=== PATIENT | male | born 1965 | race Hispanic/Latino ===

== ENCOUNTER 2022-06-03 17:46 | Inpatient (IN) | payer SELFPAY ==
[~2022-06-03 17:46] MED LIST: Iopamidol 370 76% 100 ML VIAL ONE
[2022-06-03] MEDS ORDERED: Piperacillin/Tazobactam 3.375 GM VIAL ONE (18:41)
[2022-06-03 18:49] LABS: #Eosinphils 0.1 thou/uL (0.0-0.7); #Lymphocytes 0.8 thou/uL (1.20-3.40); #Monocytes 0.7 thou/uL (0.11-0.59); #Neutrophils 5.5 thou/uL (1.40-6.50); %Basophils 0.6 % (0.0-1.0); %Eosinophils 0.9 % (0.0-10.0); %Monocytes 9.9 % (0.0-10.0); %Neutrophils 77.7 % (42.0-75.0); Mean Corpuscular HGB CONC 33.2 g/dL (32.0-36.0); Mean Corpuscular Hemoglobin 29.4 pg (27.0-31.0); Mean Corpuscular Volume 88.7 fL (78.0-98.0); Mean Platelet Volume 6.7 fL (7.4-10.4); Platelet Count 186 thou/uL (130-400); RBC Distribution Width 14.6 % (11.5-14.5); Red Blood Cell (RBC) Count 3.05 mill/uL (4.70-6.10); White Blood Cell (WBC) Count 7.1 thou/uL (4.8-10.8)
[2022-06-03 18:54] LABS: ALT (SGPT) Less than 7 U/L (8-55); AST (SGOT) 15 U/L (5-34); Albumin 1.8 g/dL (3.5-5.0); Alkaline Phosphatase 108 U/L (40-110); Anion Gap 9 mmol/L (10-20); BUN (Urea Nitrogen) 8 mg/dL (8.4-25.7); Bilirubin, Total 0.8 mg/dL (0.2-1.2); CK (CPK) 35 U/L (30-200); Calc. Creatinine Clearance 0 mL/min (70-130); Calcium 7.2 mg/dL (7.8-10.44); Carbon Dioxide 23 mmol/L (22-29); Chloride 94 mmol/L (98-107); Estimated GFR 108; Globulin 3.8 g/dL (2.4-3.5); Lipase 55 U/L (8-78); Potassium 3.4 mmol/L (3.5-5.1); Protein, Total 5.6 g/dL (6.0-8.3)
[2022-06-03] MEDS ORDERED: Vancomycin 1.5 GRAM/300 ML BAG 1.5 GM in Premix Bag 1 BAG IVPB SCH (19:00)
[2022-06-03] MEDS ORDERED: Multivitamins, Adult 10 ML, Thiamine HCl 100 MG, Folic Acid 1 MG in Dextrose 5 %-0.45 %... IV SCH (19:00)
[2022-06-03 19:02] LABS: Glucose 185 mg/dL (70-105); Sodium 123 mmol/L (136-145)
[2022-06-03 20:18] LABS: Acetaminophen Less than 10.0 mcg/mL (10.0-30.0); Alcohol Less than 10 mg/dL (Less than 10); Salicylate Less than 8.0 mg/dL (15.0-30.0)
[2022-06-03] MEDS ORDERED: Acetaminophen 325 MG TAB PO PRN (21:13)
[2022-06-03] MEDS ORDERED: Ondansetron PF 4 MG/2 ML Vial IVP PRN (21:13)
[2022-06-03] MEDS ORDERED: Albumin 25% 25 GM/100 ML BOT IVPB SCH (21:15)
[2022-06-03] MEDS ORDERED: Potassium Chloride 20 MEQ TAB PO SCH (21:15)
[2022-06-03 21:20] LABS: Bilirubin Negative (Negative); Blood, Urine Negative (Negative); Clarity Clear (Clear); Glucose, Urine (Dipstick) Normal (Negative); Ketone, Urine Negative (Negative); Leukocyte Negative Leu/uL (Negative); Nitrite Negative (Negative); Protein, Urine (Dipstick) Negative (Neg-Trace); Specific Gravity, Urine 1.046 (1.002-1.036); Urobilinogen Normal mg/dL (Less than 2); pH, Urine 6.5 (5.0-9.0)
[2022-06-03 21:28] LABS: Amphetamine Not Detected (NotDetected); Barbiturates Screen Not Detected (NotDetected); Benzodiazepine Screen Not Detected (NotDetected); Cocaine Metabolite Screen Not Detected (NotDetected); Methadone Not Detected (NotDetected); Methamphetamine Not Detected (NotDetected); Opiate Screen Not Detected (NotDetected); Oxycodone Screen Not Detected (NotDetected); Phencyclidine (PCP) Not Detected (NotDetected); THC/Cannabinoid Screen Not Detected (NotDetected); Tricyclic Screen Not Detected (NotDetected)
[2022-06-03 21:51] LABS: SARS-CoV-2 NAA Rapid Test Not Detected (NotDetected)
[2022-06-03 22:33] LABS: Lactic Acid 1.5 mmol/L (0.5-2.2)
[2022-06-03 22:40] LABS: Anion Gap 10 mmol/L (10-20); BUN (Urea Nitrogen) 7 mg/dL (8.4-25.7); Calc. Creatinine Clearance 0 mL/min (70-130); Calcium 7.1 mg/dL (7.8-10.44); Carbon Dioxide 23 mmol/L (22-29); Chloride 96 mmol/L (98-107); Estimated GFR 111; Glucose 160 mg/dL (70-105); Magnesium 1.3 mg/dL (1.6-2.6); Potassium 3.5 mmol/L (3.5-5.1); Sodium 125 mmol/L (136-145)
[2022-06-03] MEDS ORDERED: Furosemide 20 MG/2 ML VIAL SLOW IVP SCH (23:00)
[2022-06-03] MEDS ORDERED: Magnesium 2 GM/50 ML(in water) 2 GM in Premix Bag 1 BAG IVPB SCH (23:00)
[2022-06-03] MEDS ORDERED: Magnesium Sulfate 2 GM in Sodium Chloride 0.9% 100 ML IVPB SCH (23:00)
[2022-06-03] MEDS: Thiamine HCl 200 MG/2 ML VIAL SLOW IVP SCH (23:38)
[2022-06-04] MEDS: Furosemide 20 MG/2 ML VIAL SLOW IVP SCH ×2 (05:21→14:44)
[2022-06-04 05:28] LABS: #Eosinphils 0.1 thou/uL (0.0-0.7); #Lymphocytes 0.4 thou/uL (1.20-3.40); #Monocytes 0.6 thou/uL (0.11-0.59); #Neutrophils 4.8 thou/uL (1.40-6.50); %Eosinophils 0.9 % (0.0-10.0); %Lymphocytes 7.6 % (21.0-51.0); %Monocytes 9.7 % (0.0-10.0); %Neutrophils 81.9 % (42.0-75.0); Hemoglobin 8.2 g/dL (14.0-18.0); Mean Corpuscular HGB CONC 33.2 g/dL (32.0-36.0); Mean Corpuscular Hemoglobin 29.9 pg (27.0-31.0); Mean Corpuscular Volume 90.1 fL (78.0-98.0); Mean Platelet Volume 7.1 fL (7.4-10.4); Platelet Count 167 thou/uL (130-400); RBC Distribution Width 14.8 % (11.5-14.5); Red Blood Cell (RBC) Count 2.74 mill/uL (4.70-6.10); White Blood Cell (WBC) Count 5.8 thou/uL (4.8-10.8)
[2022-06-04 05:47] LABS: Hemoglobin A1c 7.3 % (4.0-6.0)
[2022-06-04 06:38] LABS: Anion Gap 12 mmol/L (10-20); BUN (Urea Nitrogen) 8 mg/dL (8.4-25.7); Calc. Creatinine Clearance 96 mL/min (70-130); Calcium 7.4 mg/dL (7.8-10.44); Carbon Dioxide 21 mmol/L (22-29); Chloride 97 mmol/L (98-107); Estimated GFR 107; Glucose 165 mg/dL (70-105); Magnesium 1.7 mg/dL (1.6-2.6); Potassium 3.9 mmol/L (3.5-5.1); Sodium 126 mmol/L (136-145)
[2022-06-04] MEDS: Folic Acid 1 MG TAB PO SCH (09:01)
[2022-06-04] MEDS: Enoxaparin Sodium 30 MG/0.3 ML SYRINGE SC SCH (09:01)
[2022-06-04] MEDS: Multivitamin W/ Minerals 1 TAB PO SCH (09:02)
[2022-06-04] MEDS: cefTRIAXone\\ROCEPHIN 2 GM in Sodium Chloride 0.9% 100 ML IVPB SCH (18:15)
[2022-06-04] MEDS: Albumin 25% 25 GM/100 ML BOT IVPB SCH (18:20)
[2022-06-05] MEDS: Thiamine HCl 200 MG/2 ML VIAL SLOW IVP SCH ×2 (01:06→21:14)
[2022-06-05] MEDS: Albumin 25% 25 GM/100 ML BOT IVPB SCH ×4 (01:07→21:15)
[2022-06-05 05:40] LABS: #Eosinphils 0.1 thou/uL (0.0-0.7); #Lymphocytes 0.6 thou/uL (1.20-3.40); #Monocytes 0.6 thou/uL (0.11-0.59); #Neutrophils 4.8 thou/uL (1.40-6.50); %Basophils 0.2 % (0.0-1.0); %Eosinophils 1.7 % (0.0-10.0); %Lymphocytes 9.8 % (21.0-51.0); %Monocytes 10.2 % (0.0-10.0); %Neutrophils 78.1 % (42.0-75.0); Hemoglobin 8.4 g/dL (14.0-18.0); Mean Corpuscular HGB CONC 31.9 g/dL (32.0-36.0); Mean Corpuscular Hemoglobin 28.7 pg (27.0-31.0); Mean Corpuscular Volume 89.9 fL (78.0-98.0); Mean Platelet Volume 7.1 fL (7.4-10.4); Platelet Count 193 thou/uL (130-400); RBC Distribution Width 14.9 % (11.5-14.5); Red Blood Cell (RBC) Count 2.91 mill/uL (4.70-6.10); White Blood Cell (WBC) Count 6.2 thou/uL (4.8-10.8)
[2022-06-05 06:05] LABS: INR-International Normal Ratio 1.6; Prothrombin Time 19.4 sec (12.0-14.7)
[2022-06-05 06:21] LABS: ALT (SGPT) Less than 7 U/L (8-55); AST (SGOT) 17 U/L (5-34); Albumin 1.9 g/dL (3.5-5.0); Alkaline Phosphatase 94 U/L (40-110); Anion Gap 9 mmol/L (10-20); BUN (Urea Nitrogen) 12 mg/dL (8.4-25.7); Bilirubin, Direct 0.4 mg/dL (0.1-0.3); Bilirubin, Total 0.6 mg/dL (0.2-1.2); Calc. Creatinine Clearance 97 mL/min (70-130); Calcium 7.7 mg/dL (7.8-10.44); Carbon Dioxide 24 mmol/L (22-29); Chloride 96 mmol/L (98-107); Estimated GFR 108; Glucose 184 mg/dL (70-105); Iron 12 ug/dL (65-175); Iron Binding Capacity, Total 116 mcg/dL (261-462); Magnesium 1.5 mg/dL (1.6-2.6); Potassium 3.8 mmol/L (3.5-5.1); Protein, Total 5.5 g/dL (6.0-8.3); Sodium 125 mmol/L (136-145)
[2022-06-05 06:35] LABS: Ferritin 462.27 ng/mL (22-322)
[2022-06-05 07:25] LABS: HBCM Index 0.51 S/CO (0-0.79); HBSAg Index 0.31 S/CO (0-0.99); Hep A IgM AB Non-Reactive (NonReactive); Hep A IgM S/CO 0.29 S/CO (0-0.79); Hep B Surf Ag Non-Reactive S/CO (NonReactive); Hep C IgG Ab Non-Reactive (NonReactive); Hep C Index 0.26 S/CO (0-0.79); Hepatitis B Core IgM Abs Non-Reactive (NonReactive)
[2022-06-05] MEDS: Furosemide 20 MG/2 ML VIAL SLOW IVP SCH ×2 (08:19→14:26)
[2022-06-05] MEDS: Enoxaparin Sodium 30 MG/0.3 ML SYRINGE SC SCH (08:20)
[2022-06-05] MEDS: Multivitamin W/ Minerals 1 TAB PO SCH (08:21)
[2022-06-05] MEDS: Folic Acid 1 MG TAB PO SCH (08:22)
[2022-06-05] MEDS: cefTRIAXone\\ROCEPHIN 2 GM in Sodium Chloride 0.9% 100 ML IVPB SCH (21:14)
[2022-06-06 06:43] LABS: #Eosinphils 0.1 thou/uL (0.0-0.7); #Lymphocytes 0.7 thou/uL (1.20-3.40); #Monocytes 0.7 thou/uL (0.11-0.59); #Neutrophils 5.3 thou/uL (1.40-6.50); %Basophils 0.3 % (0.0-1.0); %Eosinophils 1.4 % (0.0-10.0); %Lymphocytes 10.1 % (21.0-51.0); %Monocytes 9.6 % (0.0-10.0); %Neutrophils 78.6 % (42.0-75.0); Hemoglobin 7.9 g/dL (14.0-18.0); Mean Corpuscular HGB CONC 31.9 g/dL (32.0-36.0); Mean Corpuscular Hemoglobin 28.6 pg (27.0-31.0); Mean Corpuscular Volume 89.4 fL (78.0-98.0); Mean Platelet Volume 7.1 fL (7.4-10.4); Platelet Count 177 thou/uL (130-400); RBC Distribution Width 14.8 % (11.5-14.5); Red Blood Cell (RBC) Count 2.77 mill/uL (4.70-6.10); White Blood Cell (WBC) Count 6.7 thou/uL (4.8-10.8)
[2022-06-06 07:07] LABS: Anion Gap 12 mmol/L (10-20); BUN (Urea Nitrogen) 13 mg/dL (8.4-25.7); Calc. Creatinine Clearance 101 mL/min (70-130); Calcium 7.9 mg/dL (7.8-10.44); Carbon Dioxide 22 mmol/L (22-29); Chloride 97 mmol/L (98-107); Estimated GFR 109; Glucose 195 mg/dL (70-105); Magnesium 1.4 mg/dL (1.6-2.6); Sodium 127 mmol/L (136-145)
[2022-06-06] MEDS: Enoxaparin Sodium 30 MG/0.3 ML SYRINGE SC SCH (08:36)
[2022-06-06] MEDS: Folic Acid 1 MG TAB PO SCH (08:37)
[2022-06-06] MEDS: Multivitamin W/ Minerals 1 TAB PO SCH (08:37)
[2022-06-06] MEDS: Furosemide 20 MG/2 ML VIAL SLOW IVP SCH ×2 (08:38→14:46)
[2022-06-06] MEDS: cefTRIAXone\\ROCEPHIN 2 GM in Sodium Chloride 0.9% 100 ML IVPB SCH (17:49)
[2022-06-06] MEDS: Thiamine HCl 200 MG/2 ML VIAL SLOW IVP SCH (20:44)
[2022-06-07] MEDS: Furosemide 20 MG/2 ML VIAL SLOW IVP SCH ×2 (06:31→17:14)
[2022-06-07] MEDS ORDERED: Spironolactone 100 MG TAB PO SCH (08:00)
[2022-06-07] MEDS: Enoxaparin Sodium 30 MG/0.3 ML SYRINGE SC SCH (08:22)
[2022-06-07] MEDS: Multivitamin W/ Minerals 1 TAB PO SCH (08:22)
[2022-06-07] MEDS: Folic Acid 1 MG TAB PO SCH (08:23)
[2022-06-07 16:49] LABS: ANA Symphony (Qualitative) Negative (Negative); ANA Symphony (Quantitative) 0.6 Ratio (< 0.7 Negative); EliA Vaculitis New Method **** NEW METHOD ****; Mitochondrial Ab 2.2 U/mL (<4 Negative); dsDNA IgG Antibody 2.1 IU/mL (<10 Negative)
[2022-06-07] MEDS ORDERED: Ondansetron PF 4 MG/2 ML Vial IVP PRN (18:28)
[2022-06-07] MEDS: cefTRIAXone\\ROCEPHIN 2 GM in Sodium Chloride 0.9% 100 ML IVPB SCH ×2 (18:32→18:39)
[2022-06-07] MEDS: Thiamine HCl 200 MG/2 ML VIAL SLOW IVP SCH (18:38)
[2022-06-08] MEDS: Furosemide 20 MG/2 ML VIAL SLOW IVP SCH ×2 (05:20→16:21)
[2022-06-08] MEDS: Spironolactone 100 MG TAB PO SCH (08:35)
[2022-06-08] MEDS: Folic Acid 1 MG TAB PO SCH (08:36)
[2022-06-08] MEDS: Enoxaparin Sodium 30 MG/0.3 ML SYRINGE SC SCH (08:36)
[2022-06-08] MEDS: Multivitamin W/ Minerals 1 TAB PO SCH (08:37)
[2022-06-08] MEDS ORDERED: Sodium Bicarbonate 2.5 MEQ/5 ML VIAL ONE (09:42)
[2022-06-08] MEDS ORDERED: Lidocaine 2% PF 5 ML VIAL ONE (09:42)
[2022-06-08 12:05] LABS: RBC Count-Automated (BF) 2852 /cu.mm; WBC/Nucleated-Auto (BF) 55 /cu.mm
[2022-06-08 12:42] LABS: #Lymphocytes 0.6 thou/uL (1.20-3.40); #Monocytes 0.7 thou/uL (0.11-0.59); #Neutrophils 4.9 thou/uL (1.40-6.50); %Eosinophils 0.6 % (0.0-10.0); %Lymphocytes 8.8 % (21.0-51.0); %Monocytes 10.5 % (0.0-10.0); Hemoglobin 7.8 g/dL (14.0-18.0); Mean Corpuscular HGB CONC 31.8 g/dL (32.0-36.0); Mean Corpuscular Hemoglobin 28.5 pg (27.0-31.0); Mean Corpuscular Volume 89.4 fL (78.0-98.0); Mean Platelet Volume 7.1 fL (7.4-10.4); Platelet Count 181 thou/uL (130-400); RBC Distribution Width 14.8 % (11.5-14.5); Red Blood Cell (RBC) Count 2.72 mill/uL (4.70-6.10); White Blood Cell (WBC) Count 6.2 thou/uL (4.8-10.8)
[2022-06-08 12:56] LABS: ALT (SGPT) 8 U/L (8-55); AST (SGOT) 18 U/L (5-34); Albumin 2.3 g/dL (3.5-5.0); Alkaline Phosphatase 86 U/L (40-110); Anion Gap 9 mmol/L (10-20); BUN (Urea Nitrogen) 12 mg/dL (8.4-25.7); Bilirubin, Total 0.8 mg/dL (0.2-1.2); Calc. Creatinine Clearance 91 mL/min (70-130); Calcium 8.1 mg/dL (7.8-10.44); Carbon Dioxide 26 mmol/L (22-29); Chloride 94 mmol/L (98-107); Estimated GFR 105; Globulin 3.5 g/dL (2.4-3.5); Glucose 224 mg/dL (70-105); Potassium 3.7 mmol/L (3.5-5.1); Protein, Total 5.8 g/dL (6.0-8.3); Sodium 125 mmol/L (136-145)
[2022-06-08 13:17] LABS: BF Color Yellow; Body Fluid Source Ascites Body Fluid; Clarity Hazy (Clear); Tube # EDTA
[2022-06-08 13:20] LABS: BF Segmented Neutrophils 34 %
[2022-06-08 13:21] LABS: Cell Count Non Hematic 18 %; Lymphocytes 48 %
[2022-06-08] MEDS: cefTRIAXone\\ROCEPHIN 2 GM in Sodium Chloride 0.9% 100 ML IVPB SCH (17:21)
[2022-06-08] MEDS: Thiamine HCl 200 MG/2 ML VIAL SLOW IVP SCH (18:07)
[2022-06-08] MEDS: Acetaminophen 325 MG TAB PO PRN (18:24)
[2022-06-08] MEDS ORDERED: Piperacillin/Tazobactam 3.375 GM in Sodium Chloride 0.9% 100 ML IVPB SCH ×2 (20:00→22:00)
[2022-06-08] MEDS ORDERED: Vancomycin 1.5 GRAM/300 ML BAG 1.5 GM in Premix Bag 1 BAG IVPB SCH (21:00)
[2022-06-08] MEDS: Piperacillin/Tazobactam 3.375 GM in Sodium Chloride 0.9% 100 ML IVPB SCH (23:59)
[2022-06-09 05:17] LABS: #Eosinphils 0.1 thou/uL (0.0-0.7); #Lymphocytes 0.6 thou/uL (1.20-3.40); #Monocytes 0.6 thou/uL (0.11-0.59); #Neutrophils 5.4 thou/uL (1.40-6.50); %Basophils 0.3 % (0.0-1.0); %Eosinophils 1.6 % (0.0-10.0); %Lymphocytes 8.9 % (21.0-51.0); %Monocytes 8.2 % (0.0-10.0); Hemoglobin 7.8 g/dL (14.0-18.0); Mean Corpuscular HGB CONC 31.2 g/dL (32.0-36.0); Mean Corpuscular Volume 89.9 fl (78.0-98.0); Mean Platelet Volume 7.3 fL (7.4-10.4); Platelet Count 196 thou/uL (130-400); RBC Distribution Width 14.8 % (11.5-14.5); Red Blood Cell (RBC) Count 2.79 mill/uL (4.70-6.10); White Blood Cell (WBC) Count 6.7 thou/uL (4.8-10.8)
[2022-06-09] MEDS: Furosemide 20 MG/2 ML VIAL SLOW IVP SCH ×2 (05:40→15:09)
[2022-06-09 05:41] LABS: ALT (SGPT) 12 U/L (8-55); AST (SGOT) 20 U/L (5-34); Albumin 2.3 g/dL (3.5-5.0); Alkaline Phosphatase 109 U/L (40-110); Anion Gap 9 mmol/L (10-20); BUN (Urea Nitrogen) 13 mg/dL (8.4-25.7); Bilirubin, Total 0.6 mg/dL (0.2-1.2); Calc. Creatinine Clearance 93 mL/min (70-130); Calcium 7.6 mg/dL (7.8-10.44); Carbon Dioxide 27 mmol/L (22-29); Chloride 95 mmol/L (98-107); Estimated GFR 106; Globulin 3.7 g/dL (2.4-3.5); Glucose 233 mg/dL (70-105); Potassium 4.2 mmol/L (3.5-5.1); Sodium 127 mmol/L (136-145)
[2022-06-09] MEDS: Vancomycin 1 GM in Premix Bag 1 BAG IVPB SCH ×3 (11:07→20:08)
[2022-06-09] MEDS: Piperacillin/Tazobactam 3.375 GM in Sodium Chloride 0.9% 100 ML IVPB SCH ×2 (11:47→22:04)
[2022-06-09] MEDS: Spironolactone 100 MG TAB PO SCH (11:47)
[2022-06-09] MEDS: Multivitamin W/ Minerals 1 TAB PO SCH (11:48)
[2022-06-09] MEDS: Folic Acid 1 MG TAB PO SCH (11:48)
[2022-06-09] MEDS: Enoxaparin Sodium 30 MG/0.3 ML SYRINGE SC SCH (11:49)
[2022-06-09] MEDS: Acetaminophen 325 MG TAB PO PRN ×3 (12:08→23:23)
[2022-06-09] MEDS: Thiamine HCl 200 MG/2 ML VIAL SLOW IVP SCH (18:50)
[2022-06-10] MEDS: Furosemide 20 MG/2 ML VIAL SLOW IVP SCH ×2 (05:18→16:00)
[2022-06-10] MEDS: Piperacillin/Tazobactam 3.375 GM in Sodium Chloride 0.9% 100 ML IVPB SCH ×2 (05:18→16:00)
[2022-06-10] MEDS: Spironolactone 100 MG TAB PO SCH (09:04)
[2022-06-10] MEDS: Multivitamin W/ Minerals 1 TAB PO SCH (09:04)
[2022-06-10] MEDS: Enoxaparin Sodium 30 MG/0.3 ML SYRINGE SC SCH (09:04)
[2022-06-10] MEDS: Folic Acid 1 MG TAB PO SCH (09:04)
[2022-06-10] MEDS: Vancomycin 1 GM in Premix Bag 1 BAG IVPB SCH (09:44)
[2022-06-10 13:41] LABS: #Basophils 0.1 thou/uL (0.0-0.2); #Eosinphils 0.1 thou/uL (0.0-0.7); #Lymphocytes 0.5 thou/uL (1.20-3.40); #Monocytes 0.6 thou/uL (0.11-0.59); #Neutrophils 7.1 thou/uL (1.40-6.50); %Basophils 1.5 % (0.0-1.0); %Eosinophils 0.8 % (0.0-10.0); %Lymphocytes 6.2 % (21.0-51.0); %Monocytes 7.1 % (0.0-10.0); %Neutrophils 84.5 % (42.0-75.0); Hemoglobin 7.9 g/dL (14.0-18.0); Mean Corpuscular HGB CONC 32.5 g/dL (32.0-36.0); Mean Corpuscular Hemoglobin 29.3 pg (27.0-31.0); Mean Corpuscular Volume 90.2 fl (78.0-98.0); Mean Platelet Volume 7.1 fL (7.4-10.4); Platelet Count 229 thou/uL (130-400); RBC Distribution Width 14.8 % (11.5-14.5); Red Blood Cell (RBC) Count 2.69 mill/uL (4.70-6.10); White Blood Cell (WBC) Count 8.4 thou/uL (4.8-10.8)
[2022-06-10 14:00] LABS: Vancomycin, Trough 6.4 ug/mL
[2022-06-10] MEDS ORDERED: Linezolid 600 MG in Premix Bag 1 BAG IVPB SCH (14:00)
[2022-06-10 14:04] LABS: ALT (SGPT) 10 U/L (8-55); AST (SGOT) 17 U/L (5-34); Albumin 2.2 g/dL (3.5-5.0); Alkaline Phosphatase 116 U/L (40-110); Anion Gap 10 mmol/L (10-20); BUN (Urea Nitrogen) 15 mg/dL (8.4-25.7); Bilirubin, Total 0.6 mg/dL (0.2-1.2); Calc. Creatinine Clearance 89 mL/min (70-130); Calcium 7.8 mg/dL (7.8-10.44); Carbon Dioxide 26 mmol/L (22-29); Chloride 91 mmol/L (98-107); Estimated GFR 104; Globulin 3.8 g/dL (2.4-3.5); Glucose 267 mg/dL (70-105); Potassium 4.1 mmol/L (3.5-5.1); Sodium 123 mmol/L (136-145)
[2022-06-10] MEDS: Thiamine HCl 200 MG/2 ML VIAL SLOW IVP SCH (23:14)
[2022-06-10] MEDS ORDERED: Morphine 4 MG/ML VIAL SLOW IVP PRN (23:31)
[2022-06-11] MEDS: Piperacillin/Tazobactam 3.375 GM in Sodium Chloride 0.9% 100 ML IVPB SCH ×4 (02:02→21:36)
[2022-06-11] MEDS: Furosemide 20 MG/2 ML VIAL SLOW IVP SCH ×2 (06:52→15:02)
[2022-06-11] MEDS: Spironolactone 100 MG TAB PO SCH (09:00)
[2022-06-11] MEDS: Enoxaparin Sodium 30 MG/0.3 ML SYRINGE SC SCH (09:00)
[2022-06-11] MEDS: Folic Acid 1 MG TAB PO SCH (09:04)
[2022-06-11] MEDS: Multivitamin W/ Minerals 1 TAB PO SCH (09:04)
[2022-06-11] MEDS: Linezolid 600 MG in Premix Bag 1 BAG IVPB SCH ×2 (11:03→22:56)
[2022-06-11] MEDS: Thiamine HCl 200 MG/2 ML VIAL SLOW IVP SCH (19:26)
[2022-06-11] MEDS: Rifaximin 550 MG TAB PO SCH (21:37)
[2022-06-11] MEDS ORDERED: Cepastat Lozenges 1 LOZ PO PRN (22:17)
[2022-06-11] MEDS ORDERED: Benzonatate 100 MG CAP PO PRN (22:17)
[2022-06-12] MEDS: Furosemide 20 MG/2 ML VIAL SLOW IVP SCH ×2 (05:39→15:20)
[2022-06-12] MEDS: Piperacillin/Tazobactam 3.375 GM in Sodium Chloride 0.9% 100 ML IVPB SCH ×3 (05:39→20:19)
[2022-06-12] MEDS: Rifaximin 550 MG TAB PO SCH ×3 (09:45→20:34)
[2022-06-12] MEDS: Folic Acid 1 MG TAB PO SCH (09:45)
[2022-06-12] MEDS: Multivitamin W/ Minerals 1 TAB PO SCH (09:45)
[2022-06-12] MEDS: Spironolactone 100 MG TAB PO SCH (09:45)
[2022-06-12] MEDS: Enoxaparin Sodium 30 MG/0.3 ML SYRINGE SC SCH (09:46)
[2022-06-12] MEDS: Linezolid 600 MG in Premix Bag 1 BAG IVPB SCH (11:17)
[2022-06-12] MEDS ORDERED: Sodium Chloride 0.9% 100 ML ONE (15:18)
[2022-06-12] MEDS ORDERED: Piperacillin/Tazobactam 3.375 GM VIAL ONE (15:18)
[2022-06-12] MEDS ORDERED: Bupivacaine/Epinephrine 0.25% 30 ML VIAL ONE (17:42)
[2022-06-12] MEDS ORDERED: fentaNYL PF 100 MCG/2 ML SYRINGE ONE (18:30)
[2022-06-12] MEDS ORDERED: PROPOFOL 200 MG/20 ML VIAL ONE (18:38)
[2022-06-12] MEDS: Thiamine HCl 200 MG/2 ML VIAL SLOW IVP SCH (19:40)
[2022-06-13] MEDS: Linezolid 600 MG in Premix Bag 1 BAG IVPB SCH ×2 (00:03→10:47)
[2022-06-13] MEDS: Furosemide 20 MG/2 ML VIAL SLOW IVP SCH ×2 (05:34→13:58)
[2022-06-13] MEDS: Piperacillin/Tazobactam 3.375 GM in Sodium Chloride 0.9% 100 ML IVPB SCH ×3 (05:34→20:38)
[2022-06-13] MEDS: Folic Acid 1 MG TAB PO SCH ×3 (09:08→10:46)
[2022-06-13] MEDS: Multivitamin W/ Minerals 1 TAB PO SCH ×3 (09:08→10:47)
[2022-06-13] MEDS: Rifaximin 550 MG TAB PO SCH ×3 (09:08→20:39)
[2022-06-13] MEDS: Spironolactone 100 MG TAB PO SCH ×4 (09:08→10:49)
[2022-06-13] MEDS: Enoxaparin Sodium 30 MG/0.3 ML SYRINGE SC SCH (09:09)
[2022-06-13] MEDS ORDERED: Rifaximin 550 MG TAB PO SCH (10:45)
[2022-06-13] MEDS: Thiamine HCl 200 MG/2 ML VIAL SLOW IVP SCH (18:10)
[2022-06-14] MEDS ORDERED: Ketorolac Tromethamine 30 MG/ML VIAL IM SCH (01:30)
[2022-06-14] MEDS: Linezolid 600 MG in Premix Bag 1 BAG IVPB SCH ×2 (02:14→12:29)
[2022-06-14] MEDS: Furosemide 20 MG/2 ML VIAL SLOW IVP SCH ×2 (08:06→16:09)
[2022-06-14] MEDS: Piperacillin/Tazobactam 3.375 GM in Sodium Chloride 0.9% 100 ML IVPB SCH ×3 (08:06→23:00)
[2022-06-14] MEDS: Enoxaparin Sodium 30 MG/0.3 ML SYRINGE SC SCH (10:58)
[2022-06-14] MEDS: Rifaximin 550 MG TAB PO SCH ×2 (10:58→22:59)
[2022-06-14] MEDS: Folic Acid 1 MG TAB PO SCH (12:29)
[2022-06-14] MEDS: Multivitamin W/ Minerals 1 TAB PO SCH (12:29)
[2022-06-14] MEDS: Spironolactone 100 MG TAB PO SCH (14:21)
[2022-06-14 14:54] LABS: #Eosinphils 0.1 thou/uL (0.0-0.7); #Lymphocytes 0.7 thou/uL (1.20-3.40); #Monocytes 0.5 thou/uL (0.11-0.59); #Neutrophils 7.2 thou/uL (1.40-6.50); %Basophils 0.2 % (0.0-1.0); %Eosinophils 1.2 % (0.0-10.0); %Lymphocytes 7.7 % (21.0-51.0); Hemoglobin 8.4 g/dL (14.0-18.0); Mean Corpuscular HGB CONC 33.1 g/dL (32.0-36.0); Mean Corpuscular Hemoglobin 29.9 pg (27.0-31.0); Mean Corpuscular Volume 90.4 fl (78.0-98.0); Mean Platelet Volume 6.7 fL (7.4-10.4); Platelet Count 326 thou/uL (130-400); White Blood Cell (WBC) Count 8.4 thou/uL (4.8-10.8)
[2022-06-14 15:10] LABS: ALT (SGPT) 16 U/L (8-55); AST (SGOT) 21 U/L (5-34); Albumin 2.4 g/dL (3.5-5.0); Alkaline Phosphatase 97 U/L (40-110); Anion Gap 10 mmol/L (10-20); BUN (Urea Nitrogen) 14 mg/dL (8.4-25.7); Bilirubin, Total 0.5 mg/dL (0.2-1.2); Calc. Creatinine Clearance 89 mL/min (70-130); Carbon Dioxide 27 mmol/L (22-29); Chloride 92 mmol/L (98-107); Estimated GFR 104; Globulin 4.4 g/dL (2.4-3.5); Glucose 266 mg/dL (70-105); Potassium 4.3 mmol/L (3.5-5.1); Protein, Total 6.8 g/dL (6.0-8.3); Sodium 125 mmol/L (136-145)
[2022-06-14] MEDS: Thiamine HCl 200 MG/2 ML VIAL SLOW IVP SCH (18:05)
[2022-06-15] MEDS: Linezolid 600 MG in Premix Bag 1 BAG IVPB SCH ×2 (00:40→11:39)
[2022-06-15] MEDS: Piperacillin/Tazobactam 3.375 GM in Sodium Chloride 0.9% 100 ML IVPB SCH (05:37)
[2022-06-15] MEDS: Furosemide 20 MG/2 ML VIAL SLOW IVP SCH ×2 (05:37→16:51)
[2022-06-15] MEDS: Spironolactone 100 MG TAB PO SCH (08:51)
[2022-06-15] MEDS: Rifaximin 550 MG TAB PO SCH ×2 (08:51→21:35)
[2022-06-15] MEDS: Enoxaparin Sodium 30 MG/0.3 ML SYRINGE SC SCH (08:52)
[2022-06-15] MEDS: Folic Acid 1 MG TAB PO SCH (11:39)
[2022-06-15] MEDS: Multivitamin W/ Minerals 1 TAB PO SCH (11:39)
[2022-06-15] MEDS ORDERED: Sodium Bicarbonate 2.5 MEQ/5 ML VIAL ONE (13:27)
[2022-06-15] MEDS ORDERED: Lidocaine 2% PF 5 ML VIAL ONE (13:27)
[2022-06-15 16:30] LABS: RBC Count-Automated (BF) 2974 /cu.mm; WBC/Nucleated-Auto (BF) 255 /cu.mm
[2022-06-15 16:42] LABS: BF Color Yellow; Body Fluid Source Ascites Body Fluid; Clarity Hazy (Clear); Tube # EDTA
[2022-06-15 17:15] LABS: BF Segmented Neutrophils 34 %; Cell Count Non Hematic 20 %; Lymphocytes 45 %
[2022-06-15] MEDS ORDERED: Dextrose 5% in Water 1,000 ML IV PRN (17:32)
[2022-06-15] MEDS ORDERED: HumaLOG 300 UNITS/3 ML VIAL SC PRN ×2 (17:32)
[2022-06-15] MEDS ORDERED: Dextrose 50% Abboject 50 ML SYRINGE SLOW IVP PRN (17:32)
[2022-06-15] MEDS: Thiamine HCl 200 MG/2 ML VIAL SLOW IVP SCH (18:30)
[2022-06-16 06:51] LABS: #Basophils 0.1 thou/uL (0.0-0.2); #Eosinphils 0.1 thou/uL (0.0-0.7); #Lymphocytes 0.7 thou/uL (1.20-3.40); #Monocytes 0.4 thou/uL (0.11-0.59); #Neutrophils 7.5 thou/uL (1.40-6.50); %Basophils 0.6 % (0.0-1.0); %Eosinophils 1.1 % (0.0-10.0); %Lymphocytes 7.4 % (21.0-51.0); %Monocytes 5.1 % (0.0-10.0); %Neutrophils 85.8 % (42.0-75.0); Hemoglobin 7.3 g/dL (14.0-18.0); Mean Corpuscular HGB CONC 31.8 g/dL (32.0-36.0); Mean Corpuscular Hemoglobin 28.6 pg (27.0-31.0); Mean Corpuscular Volume 90.1 fl (78.0-98.0); Mean Platelet Volume 6.3 fL (7.4-10.4); Platelet Count 272 thou/uL (130-400); RBC Distribution Width 15.4 % (11.5-14.5); Red Blood Cell (RBC) Count 2.56 mill/uL (4.70-6.10); White Blood Cell (WBC) Count 8.7 thou/uL (4.8-10.8)
[2022-06-16 06:52] LABS: ALT (SGPT) 15 U/L (8-55); AST (SGOT) 22 U/L (5-34); Albumin 2.1 g/dL (3.5-5.0); Alkaline Phosphatase 91 U/L (40-110); Anion Gap 11 mmol/L (10-20); BUN (Urea Nitrogen) 16 mg/dL (8.4-25.7); Bilirubin, Total 0.8 mg/dL (0.2-1.2); Calc. Creatinine Clearance 99 mL/min (70-130); Calcium 7.7 mg/dL (7.8-10.44); Carbon Dioxide 24 mmol/L (22-29); Chloride 94 mmol/L (98-107); Estimated GFR 108; Globulin 4.1 g/dL (2.4-3.5); Glucose 198 mg/dL (70-105); Potassium 4.3 mmol/L (3.5-5.1); Protein, Total 6.2 g/dL (6.0-8.3); Sodium 125 mmol/L (136-145)
[2022-06-16] MEDS: Furosemide 20 MG/2 ML VIAL SLOW IVP SCH (07:21)
[2022-06-16] MEDS: Spironolactone 100 MG TAB PO SCH (09:02)
[2022-06-16] MEDS: Enoxaparin Sodium 30 MG/0.3 ML SYRINGE SC SCH (09:03)
[2022-06-16] MEDS: Rifaximin 550 MG TAB PO SCH ×2 (09:03→22:38)
[2022-06-16 09:14] LABS: HIV (1/2) Antibody/Antigen Non-Reactive (NonReactive); HIV 1/2 INDEX 0.31 S/CO (<1.00)
[2022-06-16 11:00] LABS: Syphilis Antibody Nonreactive (Nonreactive); Syphilis Antibody Index 0.09 S/CO (<1.00 Non-Reactive)
[2022-06-16] MEDS: Folic Acid 1 MG TAB PO SCH (11:03)
[2022-06-16] MEDS: Multivitamin W/ Minerals 1 TAB PO SCH (11:03)
[2022-06-16] MEDS ORDERED: Acetaminophen 325 MG TAB PO PRN (11:46)
[2022-06-16] MEDS: Furosemide 20 MG TAB PO SCH (14:14)
[2022-06-16] MEDS: metFORMIN 500 MG TAB PO SCH (17:37)
[2022-06-17] MEDS: Thiamine 100 MG TAB PO SCH (10:26)
[2022-06-17] MEDS: Rifaximin 550 MG TAB PO SCH ×2 (10:26→21:19)
[2022-06-17] MEDS: Spironolactone 100 MG TAB PO SCH (10:26)
[2022-06-17] MEDS: metFORMIN 500 MG TAB PO SCH ×2 (10:26→16:53)
[2022-06-17] MEDS: Furosemide 20 MG TAB PO SCH ×2 (10:26→15:24)
[2022-06-17] MEDS: Multivitamin W/ Minerals 1 TAB PO SCH (11:42)
[2022-06-17] MEDS: Folic Acid 1 MG TAB PO SCH (11:42)
[2022-06-18] MEDS: metFORMIN 500 MG TAB PO SCH ×2 (10:16→16:26)
[2022-06-18] MEDS: Thiamine 100 MG TAB PO SCH (10:17)
[2022-06-18] MEDS: Rifaximin 550 MG TAB PO SCH ×2 (10:17→21:13)
[2022-06-18] MEDS: Furosemide 20 MG TAB PO SCH ×2 (10:17→15:00)
[2022-06-18] MEDS: Spironolactone 100 MG TAB PO SCH (10:17)
[2022-06-18] MEDS: Folic Acid 1 MG TAB PO SCH (12:15)
[2022-06-18] MEDS: Multivitamin W/ Minerals 1 TAB PO SCH (12:16)
[2022-06-19 05:20] VITALS: BMI 24.9
[2022-06-19] MEDS: metFORMIN 500 MG TAB PO SCH ×2 (08:47→17:21)
[2022-06-19] MEDS: Thiamine 100 MG TAB PO SCH (08:48)
[2022-06-19] MEDS: Spironolactone 100 MG TAB PO SCH (08:48)
[2022-06-19] MEDS: Furosemide 20 MG TAB PO SCH ×2 (08:48→14:41)
[2022-06-19] MEDS: Rifaximin 550 MG TAB PO SCH ×2 (08:48→19:46)
[2022-06-19] MEDS: Folic Acid 1 MG TAB PO SCH (11:32)
[2022-06-19] MEDS: Multivitamin W/ Minerals 1 TAB PO SCH (11:33)
[2022-06-20] MEDS: metFORMIN 500 MG TAB PO SCH ×2 (09:55→18:29)
[2022-06-20] MEDS: Spironolactone 100 MG TAB PO SCH (09:56)
[2022-06-20] MEDS: Thiamine 100 MG TAB PO SCH (09:56)
[2022-06-20] MEDS: Furosemide 20 MG TAB PO SCH ×2 (09:56→14:13)
[2022-06-20] MEDS: Rifaximin 550 MG TAB PO SCH ×3 (09:56→20:33)
[2022-06-20] MEDS: Multivitamin W/ Minerals 1 TAB PO SCH (11:44)
[2022-06-20] MEDS: Folic Acid 1 MG TAB PO SCH (11:44)
[2022-06-21] MEDS: metFORMIN 500 MG TAB PO SCH ×2 (09:25→17:15)
[2022-06-21] MEDS: Furosemide 20 MG TAB PO SCH ×2 (09:26→14:04)
[2022-06-21] MEDS: Rifaximin 550 MG TAB PO SCH ×2 (09:26→20:30)
[2022-06-21] MEDS: Spironolactone 100 MG TAB PO SCH (09:26)
[2022-06-21] MEDS: Thiamine 100 MG TAB PO SCH (09:27)
[2022-06-21] MEDS: Folic Acid 1 MG TAB PO SCH (10:04)
[2022-06-21] MEDS: Multivitamin W/ Minerals 1 TAB PO SCH (10:04)
[2022-06-22 08:51] VITALS: BP 138/75; TEMP 99
[2022-06-22] MEDS: Multivitamin W/ Minerals 1 TAB PO SCH ×2 (09:10→09:29)
[2022-06-22] MEDS: Furosemide 20 MG TAB PO SCH ×2 (09:10→12:29)
[2022-06-22] MEDS: metFORMIN 500 MG TAB PO SCH ×2 (09:10→09:28)
[2022-06-22] MEDS: Thiamine 100 MG TAB PO SCH ×2 (09:10→09:30)
[2022-06-22] MEDS: Rifaximin 550 MG TAB PO SCH ×2 (09:11→09:28)
[2022-06-22] MEDS: Folic Acid 1 MG TAB PO SCH ×2 (09:11→09:29)
[2022-06-22] MEDS: Spironolactone 100 MG TAB PO SCH (09:11)
== END 2022-06-22 14:30 | disposition home or self-care (01) | DRG 432 ==
LOC: ERS 17:46 → EDBD 17:46 → NEURO 20:29 → UNDODISIN 06-07 15:24 → T4-A 06-14 11:44
PROVIDERS: ADMIT Internal Medicine; ATTEND Family Medicine
PROC: 0W9G3ZZ Drainage of Peritoneal Cavity, Percutaneous Approach (ICD-10-PCS; principal; 2022-06-08)
PROC: 0JPT3XZ Removal of Tunneled Vascular Access Device from Trunk Subcutaneous Tissue and Fascia, Percutaneous Approach (ICD-10-PCS; 2022-06-12)
PROC: 0WPGX3Z Removal of Infusion Device from Peritoneal Cavity, External Approach (ICD-10-PCS; 2022-06-12)
PROC: 0W9G3ZZ Drainage of Peritoneal Cavity, Percutaneous Approach (ICD-10-PCS; 2022-06-15)
DX: K70.31 Alcoholic cirrhosis of liver with ascites (principal); A41.9 Sepsis, unspecified organism; G93.41 Metabolic encephalopathy; K72.00 Acute and subacute hepatic failure without coma; K65.2 Spontaneous bacterial peritonitis; T85.71XA Infection and inflammatory reaction due to peritoneal dialysis catheter, initial encounter; E87.1 Hypo-osmolality and hyponatremia; J90 Pleural effusion, not elsewhere classified; R64 Cachexia; E46 Unspecified protein-calorie malnutrition; Z20.822 Contact with and (suspected) exposure to COVID-19; E83.42 Hypomagnesemia; E87.6 Hypokalemia; F10.10 Alcohol abuse, uncomplicated; D64.9 Anemia, unspecified; R50.9 Fever, unspecified; K72.10 Chronic hepatic failure without coma; Z68.24 Body mass index [BMI] 24.0-24.9, adult
CPT/HCPCS: 36415; 49083; 70450; 71045; 74177; 80048; 80053; 80074; 80076; 80202; 80306; 80307; 81003; 82042; 82105; 82140; 82378; 82550; 82728; 83036; 83516; 83540; 83550; 83605; 83690; 83735; 83880; 83930; 83935; 84157; 84300; 84443; 84484; 85025; 85060; 85610; 86015; 86038; 86225; 86301; 86780; 87040; 87070; 87086; 87116; 87205; 87206; 87389; 87811; 88112; 88305; 89051; 93005; 96365; 96375; J0696; J1650; J1940; J2001; J2020; J2543; J2704; J3370; J3411; J3475; J3490; J7042; P9047; Q9967